=== PATIENT | male | born 1995 | race Caucasian/White ===

== ENCOUNTER 2024-06-11 15:08 | Emergency (ER) | payer MEDICAID ==
[~2024-06-11] VITALS: Ht 175.3 cm; Wt 58.8 kg
[2024-06-11 15:09] VITALS: BP 127/81; PULSE 96; RESP 16; O2SAT 98
--- NOTE | 2024-06-11 16:04 | Physician Documentation ---
HPI ~ General Chief Complaint: Tooth Problem Stated Complaint: DENTAL PAIN Time Seen by MD: 15:15 History of Present Illness HPI Comment Patient is seen today with complaints of periapical abscess and dental pain of left upper molar. Patient states the pain has been developing over the last 7- 10 days. Patient states he started taking clindamycin twice a day that he got from a friend about three days ago and the pain has moderately subsided. Patient states he is alternating Tylenol and ibuprofen. Patient denies any fevers or chills. Patient has no other concern or complaint at this time. Medication Reconciliation Allergies: Coded Allergies: amoxicillin (Unverified Allergy, Mild, hives, 06/11/24) Review of Systems Constitutional: Denies: chills, fever, weakness Eyes: Denies: pain, blurred vision ENT: Denies: ear pain, nose pain, throat pain, mouth pain Respiratory: Denies: cough, shortness of breath Cardiovascular: Denies: chest pain, palpitations Gastrointestinal: Denies: abdominal pain, nausea, vomiting Genitourinary: Denies: burning, dysuria Male Genitalia: Denies: penile discharge, testicular pain Neurological: Denies: headache, dizziness Musculoskeletal: Denies: pain, swelling Integumentary: Denies: rash, lesions Allergic/Immunologic: Denies: hives, itching Hematologic/Lymphatic: Denies: no symptoms reported Psychiatric: Denies: depression, anxiety Physical Exam Vital Signs: Temperature: 99.0, Source: Oral, Heart Rate: 96, Respiratory Rate: 16, BP: 127/81, Pulse Oximetry: 98, Weight: 58.800 Oxygen Flow Rate: 0 Physical Exam General: Awake and Alert, no acute distress. HEENT: Patient on exam does have periapical abscess of left upper rear molar. Conjunctiva pink, Sclera clear, Mucus Membranes moist. Neck: Supple without masses and tenderness. Resp: Unlabored. Lungs clear to auscultation bilaterally. Heart: Regular Rate and rhythm, normal S1 and S2 without murmur, rub or gallop. Extremities: No cyanosis,clubbing or edema. Skin: Warm and Dry. Procedures I & D Procedure : Procedure Note Procedure note: I did use an 11 blade to Raymond the periapical abscess of the left upper molar with purulent drainage expressed. Patient tolerated well. Progress Results/Orders Results/Orders Vital Signs 06/11/24 15:09 Temp 99.0 Pulse 96 Resp 16 B/P (MAP) 127/81 Pulse Ox 98 O2 Flow Rate 0 Medical Decision Making Findings Patient is seen today with complaints of periapical abscess and dental pain of left upper molar. Patient states the pain has been developing over the last 7- 10 days. Patient states he started taking clindamycin twice a day that he got from a friend about three days ago and the pain has moderately subsided. Patient states he is alternating Tylenol and ibuprofen. Patient denies any fevers or chills. Patient has no other concern or complaint at this time. Patient tolerated Abida of the periapical abscess well of the left upper molar. Patient given prescriptions of clindamycin and metronidazole sent to patient pharmacy to be taken as directed and as prescribed. Patient will return to ED with any worsening, concerning or changing symptoms. Patient advised to follow up with with dentist as soon as possible. Departure Disposition: HOME / SELF CARE / HOMELESS Impression: Primary Impression: Toothache Additional Impression: Dental abscess Condition: Improved Discharge Instructions: Dental Abscess Additional Instructions: Patient tolerated Abida of the periapical abscess well of the left upper molar. Patient given prescriptions of clindamycin and metronidazole sent to patient pharmacy to be taken as directed and as prescribed. Patient will return to ED with any worsening, concerning or changing symptoms. Patient advised to follow up with with dentist as soon as possible. Referrals: NO PRIMARY CARE PROVIDER (PCP) Prescriptions Metronidazole* (Flagyl*) 500 Mg Tablet 1 TAB PO Q12H for 7 Days, #14 TAB Prov: LEONEL BLOUNT 06/11/24 Clindamycin HCl (Clindamycin HCl) 300 Mg Capsule 1 CAP PO Q8H for 10 Days, #30 CAP Prov: LEONEL BLOUNT 06/11/24 Signature Scribe Signature: No scribe Attestation: No scribe LEONEL BLOUNT June 11, 2024 16:04
[2024-06-11] MEDS ORDERED: METR-159 PO (17:25)
[2024-06-11] MEDS ORDERED: CLIN300C71 PO (17:25)
[2024-06-11 17:33] VITALS: TEMP 99
== END 2024-06-11 17:35 | disposition home or self-care (01) ==
LOC: ER 15:09
DX: K04.7 Periapical abscess without sinus (principal); Z88.1 Allergy status to other antibiotic agents
CPT/HCPCS: 41800; 99284; A6449

== ENCOUNTER 2024-12-05 00:19 | Emergency (ER) | payer MEDICAID ==
[~2024-12-05] VITALS: Ht 175.3 cm; Wt 60.1 kg
[2024-12-05] MEDS: normal saline 1000ML IV soln IVB ONE (00:30)
--- NOTE | 2024-12-05 00:31 | Physician Documentation ---
History of Present Illness General Stated Complaint: SEIZURE Time Seen by MD: 00:22 History of Present Illness Initial Comments This is a 29-year-old gentleman who was brought in via EMS for evaluation of to seizure like activity episodes. Evidently the patient states that he was cason ddenly feeling nauseous, went to the sink, was leaning over the sink when he was witnessed to stiffen up and had generalized tonic-clonic seizure. He fell straight backwards striking the back of his head. This year had resolved spontaneously, but before recovery he had another generalized tonic-clonic seizure lasting about a minute which also resolved spontaneously. By the time EMS got to the hospital the patient is back to baseline and no longer postictal. At the time of my examination complains of occipital headache. He denies any prior history of seizures. He uses marijuana, he did some psilocybin mushrooms earlier today around 730. No palliating or aggravating factors for the occipital headache. Did not attempt to treat it. This never happened in the past. He denies any urinary incontinence, denies tongue pain. Denies any chest pain or difficulty breathing. Denies any current abdominal pain. Medication Reconciliation Allergies: Coded Allergies: amoxicillin (Unverified Allergy, Mild, hives, 12/05/24) Review of Systems ROS 10 point review of systems was performed and unless noted above in HPI is negative for acute process/complaint. Physical Exam Physical Exam Physical Exam GENERAL: Awake, alert, oriented, GCS 15, no apparent distress, non-toxic a ppearing, answers questions, follows commands appropriately. Examined immediately upon arrival in bed 3. HEENT: Atraumatic, normocephalic, pupils equal, extraocular muscles intact, sclerae anicteric, mucus membranes moist, oropharynx is clear, no stridor. NECK: Patient in C-collar, range of motion not tested, trachea midline, no thyromegaly, no lymphadenopathy, no JVD. CARDIOVASCULAR: regular rate/rhythm, no murmurs/gallops/rubs, Pulses are 2+ in all extremities and symmetric. Capillary refill less than 2 seconds. PULMONARY: Nonlabored, good air movement ,no respiratory distress, speaking in full sentences, clear to auscultation bilaterally, no wheezing, no ronchi, no rales, no accessory muscle use. GASTROINTESTINAL: Soft, non-tender, non-distended, normal active bowel sounds, no organomegaly, no pulsatile masses, no CVA tenderness. NEUROLOGIC: Lucid with normal mental status. Normal facial symmetry. Moves all extremities symmetrically and with purpose. No truncal ataxia. Speech is fluid without evidence of dysarthria or aphasia, no focal deficits appreciated. MUSCULOSKELETAL: There is full range of motion of all extremities. There is no joint pain or joint swelling or joint erythema. There is no muscle pain or tenderness or swelling. EXTREMITIES: warm, well-perfused, no cyanosis, no clubbing, no edema, no acute deformities. Skin: warm, dry, no rashes or lesions, no jaundice, no petechiae orpurpura. No ecchymosis. PSYCHIATRIC: Normal affect, normal insight, normal concentration. Focused exam: [No evidence of urinary incontinence, no evidence of lateral tongue biting] Progress Results/Orders Results/Orders Orders - SCOTT SIFUENTES DO Ct Cervical Spine (12/05/24) Chest,Single View (12/05/24) Monitor (12/05/24) Saline Lock (12/05/24) Ct Head (12/05/24) Hs Troponin I W Calculations (12/05/24 02:22) Completed Orders - SCOTT SIFUENTES DO Ct Cervical Spine (12/05/24) Electrocardiogram (12/05/24:) Cbc/Diff (12/05/24) Urinalysis, Cult If Indicated (12/05/24) Chest,Single View (12/05/24) MG (12/05/24) Normal Saline 1000ml (0.9% Sodium Chlori (12/05/24) Ct Head (12/05/24) CMP (12/05/24) Hs Troponin I W Calculations (12/05/24) Drug Screen, Urine (12/05/24) Ethanol (12/05/24) Medications Received in ER Medications (Trade) Dose Ordered Sig/Gladis Route PRN Reason Start Time Stop Time Status Last Admin Dose Admin (0.9% sodium chloride (NS) 1000ml IV soln) 1,000 ml ONCE ONCE IVB 12/05/24 12/05/24 00:26 DC 12/05/24 00:30 1,000 ML Vital Signs 12/05/24 12/05/24 12/05/24 12/05/24 00:21 00:26 00:45 01:51 Temp 98.7 Pulse 67 65 59 Resp 16 16 15 17 B/P (MAP) 119/74 121/73 (89) 98/69 (79) Pulse Ox 100 100 98 Laboratory Tests Test 12/05/24 00:26 12/05/24 01:41 White Blood Count 9.3 Red Blood Count 5.06 Hemoglobin 14.7 Hematocrit 42.4 Mean Corpuscular Volume 83.8 Mean Corpuscular Hemoglobin 29.1 Mean Corpuscular Hemoglobin Concent 34.8 Red Cell Distribution Width 12.7 Platelet Count 229 Mean Platelet Volume 7.5 Neutrophils (%) (Auto) 56.9 Lymphocytes (%) (Auto) 35.7 Monocytes (%) (Auto) 4.0 Eosinophils (%) (Auto) 2.7 Basophils (%) (Auto) 0.7 Neutrophils # (Auto) 5.3 Lymphocytes # (Auto) 3.3 Monocytes # (Auto) 0.4 Eosinophils # (Auto) 0.3 Basophils # (Auto) 0.1 CBC Comment Sodium Level 136 Potassium Level 3.7 Chloride Level 101 Carbon Dioxide Level 27.2 Anion Gap 8 Blood Urea Nitrogen 19 H Creatinine 1.17 H Estimated GFR/1.73 m2 75 BUN/Creatinine Ratio 16.2 Glucose Level 112 H Calcium Level 9.1 Magnesium Level 2.1 Total Bilirubin 1.0 Aspartate Amino Transf (AST/SGOT) 25 Alanine Aminotransferase (ALT/SGPT) 21 Alkaline Phosphatase 68 Troponin I High Sensitivity 14 Total Protein 8.1 Albumin 4.3 Globulin 3.8 Albumin/Globulin Ratio 1.1 Chemistry Comments Ethyl Alcohol Level < 10 Urine Specimen Description Cln catch midstream Urine Color Yellow Urine Clarity Clear Urine pH 6.0 Urine Specific [place] 1.020 Urine Protein Negative Urine Glucose (UA) Negative Urine Ketones Negative Urine Occult Blood Negative Urine Nitrite Negative Urine Bilirubin Negative Urine Urobilinogen 0.2 Urine Leukocyte Esterase Negative Urine Culture Indicated Not ind Volume Urine Centrifuged 10 ml Urine Comment Urine Opiates Screen Negative Urine Methadone Screen Negative Urine Fentanyl Screen Negative Urine Barbiturates Screen Negative Urine Phencyclidine Screen Negative Urine Amphetamines Screen Negative Urine Benzodiazepines Screen Negative Urine Cocaine Screen Negative Urine Cannabinoids Screen Positive Drug Screen Comment Medical Decision Making Additional information obtaine: other (EMS) Findings Facility Status: ED Holds, RME process The plan was discussed with the patient, who demonstrates clear understanding of the plan and is in agreement with the plan unless otherwise noted in the chart. All questions have been answered, all concerns were addressed unless otherwise documented. I was available throughout their ED stay for frequent reassessment and questions. Differential Diagnoses (considered and possible or likely): New onset seizure disorder, less likely alcohol withdrawal, less likely drug toxidrome, hypoglycemia, electrolyte derangement had also been considered. Given the fact that he had fallen and struck his head, differential also includes closed head injury, concussion, subdural, subarachnoid, cervical spine fracture or subluxation. ??Differential Diagnoses (considered and unlikely, not requiring evaluation currently): [No evidence of lateralizing sinuses suspect a stroke or Murtaza's paralysis] MDM Data Please see [facility] for the following: Independent Historians and external Records Review. Historian: [Patient] Independent Historians: ?[EMS] Medication Management: [Reviewed medication list] Social History and determinants: [Reviewed] Please see the body of the note for the following: Any independent i nterpretations of ECG, imaging studies. All vitals signs/haemodynamics, ordered tests were independently reviewed and interpreted by myself. Nursing triage complaint and vitals reviewed, additional nursing notes were reviewed as available and I agree unless otherwise noted or documented in contradiction in the chart Vital Signs: Independently reviewed Labs: Independently interpreted Imaging: Independently interpreted Old Medical Records: Independently reviewed, see [facility] for relevant summary and information Pulse Oximetry: [99%] interpreted as [normal on room air] by me [Cardroom Worker: [Regular Rate, Regular rhythm, no ectopy, NSR] reviewed and interpreted by me] Additionally notably showing: [Hemodynamic reviewed. He is not febrile, not tachycardic, no evidence of hypotension respiratory distress. CBC normal metabolic panel shows very mild GUS. Troponin is negative. Toxicolo gy positive for cannabinoids as expected. UA nondiagnostic for UTI. Chest x- ray is unremarkable. CT C-spine shows no fracture or subluxation this is a CT head shows no acute intracranial process.] Tests considered but not ordered include: [MRI can be done on an outpatient basis as well as the EEG if necessary] Social Determinants of Health Impact: Patient was evaluated in [facility], or [facility] [place] to healthcare due to below par ratio of patient to medical providers. [] Comorbid Conditions Impacting Present Evaluation and Care/Treatment: [None] Management Discussions with other Healthcare Providers: [None] Treatment and Disposition Medication Management (Given or considered): []. See EMR for details Consideration for Hospitalization/Escalation/Deescalation of Care: Admission for observation has been considered, [however the patient is able to tolerate p.o., their symptoms are controlled, they are able to rely on oral medications, and their chief complaint/diagnosis can be managed on outpatient basis.] ?ED Course:?[No clinical deterioration. No recurrence of seizure.] ?Shared decision making:?[Patient is hemodynamically stable for discharge home with follow with their primary care provider. [ ] Specific and cautious return precautions provided and discussed with full understanding. Any incidental findings were also discussed and follow up recommendations given. [] All questions answered. Patient/family were able to verbalize back return precautions. Patient/family agree to plan. Copies of imaging and laboratory studies were provided.] Code status:?FULL Please see the full Electronic Medical Record for full details of nursing documentation, medications list, other records of complete past medical history and conditions, vital signs, laboratory studies, and any radiologic study interpretations by radiologists. Portions of this note were completed using Intense dictation software and as a result there may exist minor errors in spelling. I have reviewed elements of past family and social history and agree as included in note. Differential Diagnosis See main body of the note Departure Disposition: 01 HOME / SELF CARE / HOMELESS Impression: Primary Impression: Seizure Additional Impression: Use of psilocybin Condition: Improved Discharge Instructions: Seizure, Adult Additional Instructions: Today you were evaluated for a seizure. There does not appear to be an apparent organic cause for your seizure. You need to follow-up with your primary care provider, get referral to a neurology, undergo EEG and possibly MRI brain. Do not drive or operate machinery until you are cleared by Neurology Referrals: NO PRIMARY CARE PROVIDER (PCP) Education Educated: Patient Educated regarding: diagnosis, treatment, prognosis, need for follow up Signature Scribe Signature: No scribe Attestation: Date: Dec 05, 2024 Time: 00:29 This note accurately reflects clinical decisions, work performed by myself, Scott Sifuentes, SCOTT BENNETT DO Dec 05, 2024 00:31
--- NOTE | 2024-12-05 00:32 | ELECTROCARDIOGRAPH REPORT ---
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 Augusto Morrow Measurements Intervals [employer] Rate: 62 P: 61 AL: 151 QRS: 78 QRSD: 109 T: 77 QT: 416 QTc: 423 Interpretive Statements Sinus rhythm Electronically Signed On 12-05-2024 8:53:[address] Augusto Morrow Please click the below link to view image of tracing.
[2024-12-05 00:37] LABS: MEAN PLATELET VOLUME 7.5 FL (7.4-10.4); RED CELL DISTRIBUTION WIDTH 12.7 % (11.5-14.5)
[2024-12-05 00:53] LABS: CREATININE 1.17 MG/DL (0.60-1.10); TOTAL CARBON DIOXIDE 27.2 MMOL/L (24-32); eCRCL 81 ML/MIN; eGFR 75 ML/MIN
--- NOTE | 2024-12-05 00:58 | RADIOLOGY REPORT ---
CHEST RADIOGRAPH Indication: Weakness Technique: Single frontal view of the chest was obtained COMPARISON: None FINDINGS: Lines and Tubes: None Lungs: Clear Pleura: No effusion. No pneumothorax. Cardiomediastinal contours: Unremarkable Bones: Unremarkable IMPRESSION: 1. No acute disease.
[2024-12-05 01:01] LABS: ETHANOL < 10 MG/DL (<10)
--- NOTE | 2024-12-05 01:17 | RADIOLOGY REPORT ---
EXAM: CT CT HEAD INDICATION: fall, head strike, pain TECHNIQUE: CT of the head without intravenous contrast. Radiation Dose : 1. Head: CT Dose: CTDI volume is 55.31 mGy. Dose-length product is 960.68 mGy*cm The dose indicators for CT are the volume Computed Tomography (CT) Dose Index (CTDIvol) and the Dose Length Product (DLP), and are measured in units of mGy and mGy-cm, respectively. These indicators are not patient dose, but values generated from the CT scanner acquisition factors. The report includes radiation exposure data for exposures received during this examination. COMPARISON: None FINDINGS: There is no evidence of acute intracranial hemorrhage, extra-axial collection, mass effect, midline shift, herniation or hydrocephalus. The ventricles, sulci and cisterns are age appropriate. The del rosario-white differentiation is intact. Pansinusitis. The mastoid air cells are clear. The surrounding soft tissues and osseous structures are unremarkable. IMPRESSION: 1. No acute intracranial abnormality. Radiation optimization: All CT scans at this facility use at least one of these dose optimization techniques: automated exposure control mA and/or kV adjustment per patient size (includes targeted exams where dose is matched to clinical indication) or iterative reconstruction.
--- NOTE | 2024-12-05 01:19 | RADIOLOGY REPORT ---
EXAM: CT CT CERVICAL SPINE HISTORY: fall, head strike, pain COMPARISON: CT CT HEAD on DOS: 12/05/24 CTDIvol 17.41 mGy, DLP 582.85 mGy*cm. TECHNIQUE: Multiple axial CT images of the spine were obtained using bone algorithm. Axial and coronal reformatting was done. Bone and soft tissue windows were reviewed. FINDINGS: Loss of normal cervical lordosis. No CT evidence of definite acute fracture, spinal dislocation, or significant appearing acute subluxation is seen. The visualized paraspinal soft tissues are grossly unremarkable. IMPRESSION: 1. No definite CT evidence of acute fracture or dislocation of the bony cervical spine.
[2024-12-05 02:00] LABS: LEUKOCYTE ESTERASE ,URINE NEGATIVE (Neg); NITRITES, URINE NEGATIVE (Neg); OCCULT BLOOD,URINE NEGATIVE (Neg)
[2024-12-05 02:01] LABS: UA COLLECTION TYPE CLN CATCH MIDSTREAM
[2024-12-05 02:11] LABS: URINE AMPHETAMINE SCREEN NEGATIVE (Neg); URINE BARBITUATE SCREEN NEGATIVE (Neg); URINE BENZODIAZEPINES SCREEN NEGATIVE (Neg); URINE CANNABINOID SCREEN POSITIVE (Neg); URINE COCAINE SCREEN NEGATIVE (Neg); URINE METHADONE SCREEN NEGATIVE (Neg); URINE OPIATE SCREEN NEGATIVE (Neg); URINE PHENCYCLIDINE SCREEN NEGATIVE (Neg)
[2024-12-05 02:35] VITALS: BP 114/56; PULSE 59; RESP 18; TEMP 98.7; O2SAT 100
== END 2024-12-05 02:40 | disposition home or self-care (01) ==
LOC: ER 00:19
DX: R56.9 Unspecified convulsions (principal); F12.90 Cannabis use, unspecified, uncomplicated; Z88.1 Allergy status to other antibiotic agents
CPT/HCPCS: 36415; 70450; 71045; 72125; 80053; 80305; 80320; 81003; 83735; 84484; 85025; 93005; 96360; 99285; J7030